=== PATIENT | female | born 1990 | race Caucasian/White ===

== ENCOUNTER 2021-04-05 21:40 | Emergency (ER) | payer OTHER ==
[~2021-04-05] VITALS: Ht 170.2 cm; Wt 72.6 kg
[~2021-04-05 21:40] MED LIST: DARVOCET-N 1001 EACH PO; NOHOMEMEDICATIONS
[2021-04-05] MEDS ORDERED: NORCO5 PO (22:52)
[2021-04-05] MEDS ORDERED: ZOFRAN ODT4 MG PO (22:52)
[2021-04-05 23:03] VITALS: BP 105/63
== END 2021-04-05 23:04 | disposition home or self-care (01) ==
LOC: M.ERS 21:40
DX: S00.83XA Contusion of other part of head, initial encounter (principal); Z91.040 Latex allergy status; W22.8XXA Striking against or struck by other objects, initial encounter; Y93.89 Activity, other specified; Y92.89 Other specified places as the place of occurrence of the external cause; Y99.8 Other external cause status

== ENCOUNTER 2021-08-11 04:58 | Emergency (ER) | payer OTHER ==
[~2021-08-11] VITALS: Ht 170.2 cm; Wt 72.6 kg
[~2021-08-11 04:58] MED LIST changes: +NORCO5 PO; +ZOFRAN ODT4 MG PO
[2021-08-11] MEDS ORDERED: PREDNISONE50 MG PO (06:13)
[2021-08-11 06:19] VITALS: BP 131/59
== END 2021-08-11 06:21 | disposition home or self-care (01) ==
LOC: M.ERS 04:58
DX: T78.40XA Allergy, unspecified, initial encounter (principal); Z91.040 Latex allergy status; X58.XXXA Exposure to other specified factors, initial encounter